=== PATIENT | male | born 1970 | race Caucasian/White ===

== ENCOUNTER 2024-11-23 15:39 | Emergency (ER) | payer OTHER, SELFPAY ==
--- NOTE | ~2024-11-23 | XR_ITS ---
EXAMINATION: XR hand LT min 3V DATE: 11/23/2024 16:14 INDICATION: Crush injury to the left second-fifth fingers TECHNIQUE: Posteroanterior, oblique and lateral views of the left hand were obtained. COMPARISON: None. FINDINGS: Old healed fracture deformity distal left radius with residual mild dorsal tilt of the distal articular surface. Mild residual distraction of a chronic nonunited ulnar solid avulsion fracture. Bone alignment is otherwise normal. No acute fractures identified. 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 IMPRESSION: 1. No acute osseous adenopathy. 2. Old healed distal left radial fracture deformity and chronic nonunited ulnar styloid avulsion fracture. 3. 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 Reviewed, dictated and finalized at location A.
--- NOTE | 2024-11-23 15:47 | ED_ITS ---
HPI - Extremity Injury (Upper) General Chief Complaint: Extremity Injury, Upper Stated Complaint: L hand pain Time Seen by Provider: 11/23/24 15:47 Source: patient Mode of arrival: ambulatory Limitations: no limitations History of Present Illness HPI narrative: Minh is a 53-year-old male patient presenting to the clinic today with complaints of left hand-2nd, 3rd, 4th, and 5th finger injuries. He reports approximately 1 hour ago he accidentally shut his fingers in a sliding van door. Has small abrasions to the 2nd and 3rd fingers. Tetanus is up-to-date. Is able to fully flex and extend the fingers with minimal pain. Related Data Home Medications ?Medication ?Instructions ?Recorded ?Confirmed ?Last Taken ?Type duloxetine 30 mg capsule,delayed mg PO 11/23/24 Unkno wn History release omeprazole 20 mg capsule,delayed mg 11/23/24 Unknown History release trazodone 50 mg tablet mg 11/23/24 Unknown History Allergies Allergy/AdvReac Type Severity Reaction Status Date / Time No Known Allergies Allergy Verified 11/23/24 16:01 Review of Systems Review of Systems: Pertinent positives per HPI. Patient denies any fever, chills, rash, headache, visual changes, dizziness, cough, runny nose, sore throat, shortness of breath, chest pain, palpitations, nausea, vomiting, diarrhea, constipation, abdominal pain, or any urinary issues. PMFSH Comments At the time of my signature, I reviewed and agree with the nursing past medical, surgical, social, and family history. There is no relevant family history pertinent to the patient complaint. Exam Narrative: General: Well-developed, well nourished, in no apparent distress Head: Normocephalic, atraumatic. Cardio: Regular rate and rhythm, s1 and s2 normal, no murmur appreciated. Resp: Clear to auscultation bilaterally, no rhonchi, rales, wheezing or rubs. Musculoskeletal: No deformity, tender to palpation over the 2nd, 3rd, 4th, and 5th left finger, abrasion noted to the top of the 2nd and 3rd distal fingers, is able to flex and extend the fingers actively, is able to give okay sign and thumbs-up, grossly normal range of motion, muscle strength strong and equal, peripheral pulse strong, no edema, no cyanosis, normal gait and station Course Course Emergency Course: Portions of this record may have been created with voice recognition software. Level of Care: Express Care Visit Vital Signs Vital signs: Vital Signs Temperature 36.8 C 11/23/24 15:50 Pulse Rate 96 11/23/24 15:50 Respiratory Rate 20 11/23/24 15:50 Blood Pressure 139/90 11/23/24 15:50 Pulse Oximetry 98 11/23/24 15:50 Oxygen Delivery Room Air 11/23/24 15:50 Temperature 36.8 C 11/23/24 15:50 Pulse Rate 96 11/23/24 15:50 Respiratory Rate 20 11/23/24 15:50 Blood Pressure 139/90 11/23/24 15:50 Pulse Oximetry 98 11/23/24 15:50 Oxygen Delivery Room Air 11/23/24 15:50 Vital signs reviewed MDM - Extremity Injury (Upper) MDM Narrative Medical decision making narrative: At the time of visit patient is resting comfortably on the exam table. Patient appears to be nontoxic. Complaints of left hand-2nd, 3rd, 4th, and 5th finger injuries. He reports approximately 1 hour ago he accidentally shut his fingers in a sliding van door. Has small abrasions to the 2nd and 3rd fingers. Tetanus is up-to-date. Is able to fully flex and extend the fingers with minimal pain. On exam patient has very minimal swelling to the 2nd 3rd 4th and 5th finger with a abrasion to the top of the 2nd 3rd finger, patient has good sensation, circulation, and motion with the fingers. No sign of compartment syndrome. X- rays of the left hand was ordered. Diagnostics: X-ray of the left hand was performed and negative for any sign of acute fracture or malalignment Plan: I suspect patient has contusions to the 2nd, 3rd, 4th, and 5th fingers with abrasions to the 2nd 3rd finger. Supportive measures were discussed with the patient and they voiced understanding discharge instructions and agrees to treatment plan. Return precautions reviewed Differential Diagnosis Differential diagnosis: Likely finger sprain, dislocation of finger and other (Finger fracture, contusion, soft tissue injury, compartment syndrome) Imaging Data Radiologist's impression: ITS Impressions Hand X-Ray 11/23/24 16:22 IMPRESSION: 1. No acute osseous adenopathy. 2. Old healed distal left radial fracture deformity and chronic nonunited ulnar styloid avulsion fracture. 3. 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 Discharge Plan Discharge Clinical Impression: Abrasion Contusion of finger of left hand Qualifiers: Encounter type: initial encounter Finger: unspecified finger Qualified Code(s): S60.00XA - Contusion of unspecified finger without damage to nail, initial encounter Patient Disposition: Home Condition: Stable Instructions: Antibiotic Form, Contusion in Adults (ED), Abrasion (ED) Additional Instructions: X-rays are negative for any sign of fracture or malalignment of the left fingers Rest, ice, and elevate Tylenol/motrin for pain as discussed. Follow up with your PCP if symptoms persist more than 1 week. Patient Language: Portuguese Prescriptions: No Action trazodone 50 mg tablet omeprazole 20 mg capsule,delayed release(DR/EC) duloxetine 30 mg capsule,delayed release(DR/EC) PO Follow-up/Referrals: UNKNOWN,DOCTOR [Non-Staff] Time of Disposition: 16:32 Quality NIHSS Nursing Documentation ED NIHSS nursing documentation: reviewed/agree
[2024-11-23 15:50] VITALS: BP 139/90; PULSE 96; RESP 20; TEMP 36.8; O2SAT 98
--- OUTSIDE RECORDS SUMMARY | 2024-11-23 16:03 | XMS_ITS | Encounter Summary ---
Author Organization [facility] Address [address] [place] [address] Phone Care Team Providers Care Resident Care Spec Name Role Phone Sarabjit Terry MD Primary Care Provider [phone] Jessee Cerna MD Unavailable Reason for Visit * Reason Comments Medication Refill Encounter Details Date Type Department Care Team (Late st Contact Info) Description 02/04/2022 Refill [facility] - [facility] [address] [place] [address] Sarabjit Terry MD [address] [address] Medication Refill Social History Tobacco Use Types Packs/Day Years Used Date Smoking Tobacco: Every Day Cigarettes 0.3 37.4 Started: 07/12/1987 Smokeless Tobacco: Current Chew Comments:1/2 can a day Alcohol Use Standard Drinks/Week Comments Yes 0 (1 standard drink = 0.6 oz pur e alcohol) 2-3 beers a day PHQ-2 Answer Date Recorded Total Score - Questions 1-9 0 06/06 Sexually Active Control Partners Comments Not Currently Female Sex and Gender Information Value Date Recorded Sex Assigned at Not on file Legal Sex Male 12:24 AM CDT Gender Identity Not on file Sexual Orientation Not on file documented as of this encounter Miscellaneous Notes * Telephone Encounter - Colette Laguerre RN - 02/05/2022 9:18 AM CDT Medication failed the protocol, provider to review and approve the medication order if appropriate. Requested Prescriptions Pending Prescriptions Disp Refills traZODone (DESYREL) 50 MG Tablet [Pharmacy Med Name: TRAZODONE 50 MG TABLET] 90 Tablet Sig: TAKE ONE TABLET BY MOUTH NIGHTLY Serotonin Modulators (6 Month Refill Only) Protocol Failed - 02/04/2022 6:44 PM Failed - Visit with relevant provider in past 6 months or upcoming 90 days Recent Visits No visits were found meeting these conditions. Showing recent visits within past 182 days and meeting all other requirements Future Appointments No visits were found meeting these conditions. Showing future appointments within next 90 days and meeting all other requirements Failed - Has an encounter in the past 6 months with a depression or anxiety visit diagnosis Passed - No PRN Use for Trazodone Passed - Patient has established therapy with Serotonin Modulators for at least 6 months DULoxetine (CYMBALTA) [address] Particles [Pharmacy Med Name: DULOXETINE HCL DR 30 MG CAP] 270 Capsule Sig: TAKE THREE CAPSULES BY MOUTH EVERY DAY IN THE MORNING SNRI (6 Month Refill Only) Protocol Failed - 02/04/2022 6:44 PM Failed - Visit with relevant provider in past 6 months or upcoming 90 days Recent Visits No visits were found meeting these conditions. Showing recent visits within past 182 days and meeting all other requirements Future Appointments No visits were found meeting these conditions. Showing future appointments within next 90 days and meeting all other requirements Failed - Has an encounter in the past 6 months with a depression or anxiety visit diagnosis Passed - Patient has established therapy with Serotonin-Norepinephrine Reuptake Inhibitors for at least 6 months documented in this encounter Plan of Treatment Upcoming Encounters Date Type Department Care Team (Late st Contact Info) Description 08/22/2025 4:15 PM CDT Office Visit [facility] - Family Medicine [facility] [address] [place] [address] Sarabjit Terry MD [address] [address] documented as of this encounter Visit Diagnoses Not on filedocumented in this encounter Additional Health Concerns Assessment Noted Time PHQ-9 Depression Total Score: 0 06/28/19 21 3:00 PM CDT documented as of this encounter Care Teams Resident Care Spec Relationship Specialty Start Date End Date Sarabjit Terry MD [address] [facility] [address] [place] [address] PCP - General Family Medicine 02/22/15 Jessee Cerna MD [address] [facility] [address] [place] [address] Consulting Physician Colon and Rectal Surgery 11/04/23 documented as of this encounter
--- OUTSIDE RECORDS SUMMARY | 2024-11-23 16:03 | XMS_ITS | Clinical Summary ---
Author Organization [facility] Address [address] [address] Phone Care Team Providers Care Bone Glue Maker Name Role Phone Sarabjit Terry MD Primary Care Provider [phone] Jessee Cerna MD Unavailable Allergies No known active allergies Medications Multiple Vitamins-Minera ls (MULTIVITAMIN ADULT EXTRA C PO) Take by mouth daily. Active omeprazole (PriLOSEC) 20 MG CAPSULE DELAYED RELEASE Take 1 Capsule by mouth daily. 90 Capsule 3 12/18/2023 Active DULoxetine (CYMBALTA) [address] Particles Take 3 Capsules by mouth daily. PT TAKES THREE 30MG TABLETS IN THE MORNING 270 Capsule 3 08/16/2024 Active traZODone (DESYREL) 50 MG Tablet Take 1 Tablet by mouth nightly. 90 Tablet 3 08/16/2024 Active Active Problems Problem Noted Date Diagnosed Date Panlobular emphysema 08/16/2024 Esophageal thickening 09/01/2023 Wellness examination (Adult) 06/30/2023 Personal history of tobacco use, presenting hazards to health 06/30/2023 Tachycardia 06/21/2019 Hematuria 05/03/2018 Tobacco abuse 04/03/2017 Abnormal thyroid ultrasound 11/21/2015 Insomnia 11/21/2015 Depression 02/28/2015 Resolved Problems Problem Noted Date Diagnosed Date Resolved Date Thyroid nodule 02/28/2015 04/03/2017 Immunizations Immunization Administration Dates Next Due TD VACCINE 04/07/2009 Family History Medical History Relation Name Comments Cancer Father Bones Hypertension Father Kidney Stones Father Other-comment Paternal Grandfather coloni c issues No Known Problems Paternal Grandmother Relation Name Status Comments Father Alive Maternal Grandfather Maternal Grandmother Mother Alive Paternal Grandfather Paternal Grandmother Social History Tobacco Use Types Packs/Day Years Used Date Smoking Tobacco: Every Day Cigarettes 0.5 40.6 Started: 1984 Smokeless Tobacco: Current Chew Tobacco Cessation:Ready to Q uit: No; Counseling Given: Yes Comments:<1/2 can a day Alcohol Use Standard Drinks/Week Comments Yes 0 (1 standard drink = 0.6 oz pur e alcohol) 4-5 beers perday [facility] Utilities Answer Date Recorded In the past 12 months has [employer], gas, oil, or water [employer] threatened to shut off services in your home? No 06/30/2023 Social Connection and Isolation Panel Answer Date Recorded In a typical week, how many times do you talk on the phone with family, friends, or neighbors? More than three times a week 06/30/2023 How often do you get togethe r with friends or relatives? Twice a week 06/30/2023 How often do you attend chur ch or church services? Never 06/30/2023 Do you belong to any clubs o r organizations such as presybeterian groups, unions, fraternal or athletic groups, or school groups? No 06/30/2023 How often do you attend meet ings of the clubs or organizations you belong to? Never 06/30/2023 Are you , , di vorced, , never , or living with a partner? 06/30/2023 AUDIT-C Answer Date Recorded Q1: How often do you have a drink containing alcohol? 4 or more times a week 06/30/2023 Q2: How many drinks containi ng alcohol do you have on a typical day when you are drinking? 3 or 4 Q3: How often do you have si x or more drinks on one occasion? Monthly 06/30/2023 Overall Financial Resource Strain (CARDIA) Answe r Date Recorded How hard is it for you to pa y for the very basics like food, housing, medical care, and heating? Not hard at all 06/30/2023 PHQ-2 Answer Date Recorded Total Score - Questions 1-9 0 08/05 [facility] - Occupational Stress Questionnaire Answer Date Recorded Do you feel stress - tense, restless, nervous, or anxious, or unable to sleep at night because your mind is troubled all the time - these days? Only a little 06/30/2023 Exercise Vital Sign Answer Date Recorde d On average, how many days pe r week do you engage in moderate to strenuous exercise (like a brisk walk)? 6 days 06/30/2023 On average, how many minutes do you engage in exercise at this level? 100 min 06/30/2023 Hunger Vital Sign Answer Date Recorded Within the past 12 months, y ou worried that your food would run out before you got the money to buy more. Never true 06/30/19 24 Within the past 12 months, t he food you bought just didn't last and you didn't have money to get more. Never true 06/30/2023 PRAPARE - Transportation Answer Date Re corded In the past 12 months, has l ack of transportation kept you from medical appointments or from getting medications? No 06/06 In the past 12 months, has l ack of transportation kept you from meetings, work, or from getting things needed for daily living? No 06/30/2023 Housing Stability Vital Sign Answer Ty e Recorded In the last 12 months, was t here a time when you were not able to pay the mortgage or rent on time? No 06/30/2023 In the last 12 months, how many places have you lived? 1 06/30/2023 In the last 12 months, was t here a time when you did not have a steady place to sleep or slept in a skilled nursing (including now)? No 06/30/2023 Sexually Active Control Partners Comments Not Currently Female Sex and Gender Information Value Date Recorded Sex Assigned at Not on file Legal Sex Male 12:24 AM CDT Gender Identity Not on file Sexual Orientation Not on file Last Filed Vital Signs Vital Sign Reading Time Taken Comments Blood Pressure 122/74 08/16/2024 4:08 PM CDT Pulse 90 08/16/2024 4:08 PM CDT Temperature 36.2 C (97.2 F) 08/16/2024 4:08 PM CDT Respiratory Rate 16 08/16/2024 4:08 PM CDT Oxygen Saturation 96% 08/16/2024 4:08 PM CDT Inhaled Oxygen Concentration - - Weight 75.4 kg (166 lb 3.2 oz) 08/16/2024 4:08 P M CDT Height 180.3 cm (5' 11) 08/16/2024 4:08 PM CDT Body Mass Index 23.18 08/16/2024 4:08 PM CDT Plan of Treatment Upcoming Encounters Date Type Department Care Team (Late st Contact Info) Description 08/22/2025 4:15 PM CDT Office Visit [facility] - Family Medicine - [place] [address] [place] [address] Sarabjit Terry MD [address] [address] Health Maintenance Due Date Last Done Comments Hepatitis C Virus (HCV) Screening 1970 TdaP Immunization 1969 Hepatitis B Immunization (1 of 3 - 19+ 3-dose series) 1988 Cologuard 2014 Immunochemical Fecal Occult Blood 2014 Zoster Immunization (1 of 2) 12/28/2019 SARS-COV-2 Immunization ( season) 2023 03/01/2022, 04/14/2021, 09/01/2020, Additional history exists Influenza Immunization (#1) 2024 Lung Cancer Screening 08/02/2025 08/02/2024, 024 Colonoscopy 08/10/2025 08/10/2020 Colorectal Cancer Screening 08/10/2025 Respiratory Syncytial Virus (RSV) Immunization (Adult) (1 - 1-dose 75+ series) 2044 Human Papillomavirus (HPV) Immunization Aged Out No longer eligible based on patient's age to complete this topic Meningococcal Immunization (ACWY) Aged Out No longer eligible based on patient's age to complete this topic Pneumococcal Immunization (50+ years) Discontinued Rotavirus Immunization Aged Out No lo nger eligible based on patient's age to complete this topic Procedures Procedure Name Priority Date/Time Associated Diagnosis Comments CT CHEST SCREENING WO Routine 08/02/2024 6:07 PM CDT Personal history of tobacco use, presenting hazards to health from Last 3 Months or Most Recently Relevant to Health Maintenance Results * CT CHEST SCREENING WO (08/02/2024 6:07 PM CDT) Anatomical Region Laterality Modality Chest N/A Computed Tomogra phy 08/12/2024 11:2 4 AM CDT Impressions 08/12/2024 11:26 AM CDT IMPRESSION: 1. Unchanged 3 mm solid nodule in the right middle lobe. No new pulmonary nodules. 2. Mild emphysema. 3. Dilated ascending thoracic aorta measuring up to 4.0 cm. Lung-RADS category 2: Benign appearance or behavior. Recommendation: Low dose Screening CT of chest in 12 months. Narrative 08/12/2024 11:26 AM CDT EXAM DESCRIPTION: CT CHEST SCREENING WO REASON FOR STUDY: Screening CT of the chest in a current smoker with a 26 pack year smoking history. Additional history: None. TECHNIQUE: Low dose CT scan of the chest was performed without intravenous contrast using helical scanning technique. The exam extends from the lung apices through the lung bases. Automatic exposure control was used as a dose optimization technique. NOTE: This study was performed for the specific purposes of lung cancer screening and is not an alternative to diagnostic chest CT. RADIATION DOSE: CT dose index volume (CTDIvol) = 3.53 mGy COMPARISON: CT chest 07/15/2023 FINDINGS: SMOKING RELATED LUNG DISEASE: Mild emphysema. LUNG NODULES: Unchanged 3 mm solid nodule in the right middle lobe on image 180. There are multiple scattered calcified pulmonary granulomas. No new pulmonary nodules appreciated. CORONARY ARTERY CALCIFICATION: None appreciated. OTHER: There is no pleural effusion or pneumothorax. The central airways are patent. There are scattered areas of subsegmental atelectasis. The heart size is normal. No pericardial effusion or thickening. Thoracic aorta is dilated measuring up to 4.0 cm. No mediastinal or axillary lymphadenopathy. Visualized upper abdomen is unremarkable. There are no suspicious osseous lesions. THIS IS AN ELECTRONICALLY VERIFIED FINAL REPORT 08/12/2024 11:24 AM - Electronically signed by Alan Boss M.D. AM: AM Report ID: [id number] Reading Location: [id number] Procedure Note Alan Boss MD - 08/12/2024 EXAM DESCRIPTION: CT CHEST SCREENING WO REASON FOR STUDY: Screening CT of the chest in a current smoker with a 26 pack year smoking history. Additional history: None. TECHNIQUE: Low dose CT scan of the chest was performed without intravenous contrast using helical scanning technique. The exam extends from the lung apices through the lung bases. Automatic exposure control was used as a dose optimization technique. NOTE: This study was performed for the specific purposes of lung cancer screening and is not an alternative to diagnostic chest CT. RADIATION DOSE: CT dose index volume (CTDIvol) = 3.53 mGy COMPARISON: CT chest 07/15/2023 FINDINGS: SMOKING RELATED LUNG DISEASE: Mild emphysema. LUNG NODULES: Unchanged 3 mm solid nodule in the right middle lobe on image 180. There are multiple scattered calcified pulmonary granulomas. No new pulmonary nodules appreciated. CORONARY ARTERY CALCIFICATION: None appreciated. OTHER: There is no pleural effusion or pneumothorax. The central airways are patent. There are scattered areas of subsegmental atelectasis. The heart size is normal. No pericardial effusion or thickening. Thoracic aorta is dilated measuring up to 4.0 cm. No mediastinal or axillary lymphadenopathy. Visualized upper abdomen is unremarkable. There are no suspicious osseous lesions. THIS IS AN ELECTRONICALLY VERIFIED FINAL REPORT 08/12/2024 11:24 AM - Electronically signed by Alan Boss M.D. AM: AM Report ID: [id number] Reading Location: [id number] IMPRESSION: 1. Unchanged 3 mm solid nodule in the right middle lobe. No new pulmonary nodules. 2. Mild emphysema. 3. Dilated ascending thoracic aorta measuring up to 4.0 cm. Lung-RADS category 2: Benign appearance or behavior. Recommendation: Low dose Screening CT of chest in 12 months. Sarabjit Vj Terry MD [facility] CT ORDERABLES Final R esult from Last 3 Months or Most Recently Relevant to Health Maintenance Insurance [employer] Care Teams Bone Glue Maker Relationship Specialty Start Date End Date Sarabjit Terry MD [address]2 [facility] [address] [place] [address] PCP - General Family Medicine 02/22/15 Jessee Cerna MD [address]2 [facility] [address] [place] [address] Consulting Physician Colon and Rectal Surgery 11/04/23
--- OUTSIDE RECORDS SUMMARY | 2024-11-23 16:03 | XMS_ITS | Encounter Summary ---
Author Organization [facility] Address [address] [place] [place] [address] Phone Care Team Providers Care Intercell Connector Placer Name Role Phone Sarabjit Terry MD Primary Care Provider [phone] Jessee Cerna MD Unavailable Reason for Visit * Reason Comments Medication Refill Encounter Details Date Type Department Care Team (Late st Contact Info) Description 10/03/2020 Refill [facility] [address] [place] [address] Sarabjit Terry MD [address] [address] Medication Refill Social History Tobacco Use Types [...] encounter Miscellaneous Notes * Telephone Encounter - Minerva Villasenor RN - 10/04/2020 8:15 AM CDT Per nursing clinical judgement, provider to review and approve the medication(s) order(s) if appropriate. Last OV 06/27/20, F/U 06/26/21, Last Rx Trazodone 07/07/19, Duloxetine 07/07/19 Minerva MARRUFO Requested Prescriptions Pending Prescriptions Disp Refills traZODone (DESYREL) 50 MG Tablet [Pharmacy Med Name: TRAZODONE 50 MG TABLET] 90 Tablet 3 Sig: TAKE ONE TABLET BY MOUTH NIGHTLY Serotonin Modulators (6 Month Refill Only) Protocol Passed - 10/03/2020 6:20 AM Passed - Visit with relevant provider in past 6 months or upcoming 90 days Recent Visits Date Type Provider Dept 06/27/20 Office Visit Sarabjit Terry MD [facility] Show[facility] recent visits within past 182 days and meeting all other requirements Future Appointments No visits were found meeting these conditions. Showing future appointments within next 90 days and meeting all other requirements Passed - Has an encounter in the past 6 months with a depression or anxiety visit diagnosis Passed - No PRN Use for Trazodone Passed - Patient has established therapy with Serotonin Modulators for at least 6 months DULoxetine (CYMBALTA) [address] Particles [Pharmacy Med Name: DULOXETINE HCL DR 30 MG CAP] 270 Capsule 3 Sig: TAKE ONE CAPSULE BY MOUTH THREE TIMES A DAY SNRI (6 Month Refill Only) Protocol Passed - 10/03/2020 6:20 AM Passed - Visit with relevant provider in past 6 months or upcoming 90 days Recent Visits Date Type Provider Dept 06/27/20 Office Visit Sarabjit Terry MD [facility] recent visits within past 182 days and meeting all other requirements Future Appointments No visits were found meeting these conditions. Showing future appointments within next 90 days and meeting all other requirements Passed - Has an encounter in the past 6 months with a depression or anxiety visit diagnosis Passed - Patient has established therapy with Serotonin-Norepinephrine Reuptake Inhibitors for at least 6 months documented in this encounter Plan of Treatment Upcoming Encounters Date Type Department Care Team (Late st Contact Info) Description 08/22/2025 4:15 PM CDT Office Visit [facility] [address] [place] [address] Sarabjit Terry MD [address] [address] documented as of this encounter Visit Diagnoses Not on filedocumented in this encounter Additional Health Concerns Assessment Noted Time PHQ-9 Depression Total Score: 0 06/28/19 21 3:00 PM CDT documented as of this encounter Care Teams Intercell Connector Placer Relationship Specialty Start Date End Date Sarabjit Terry MD [id number] [address] PCP - General Family Medicine 02/22/15 Jessee Cerna MD [address] [address] Consulting Physician Colon and Rectal Surgery 11/04/23 documented as of this encounter
--- OUTSIDE RECORDS SUMMARY | 2024-11-23 16:03 | XMS_ITS | Encounter Summary ---
Author Organization [facility] Address [address] [place] [address] Phone Care Team Providers Care Asset Protection Greeter Name Role Phone Sarabjit Terry MD Primary Care Provider [phone] Jessee Cerna MD Unavailable Reason for Visit * Reason Comments Medication Refill Encounter Details Date Type Department Care Team (Late st Contact Info) Description 05/19/2023 Refill [facility] [address] [place] [address] Sarabjit Terry MD #[address] [address] Medication Refill Social History Tobacco Use Types [...] encounter Miscellaneous Notes * Telephone Encounter - Yasmin Woodard RN - 05/20/2023 9:48 AM CST Medication failed the protocol, provider to review and approve the medication order if appropriate. Requested Prescriptions Pending Prescriptions Disp Refills traZODone (DESYREL) 50 MG Tablet [Pharmacy Med Name: TRAZODONE 50 MG TABLET] 90 Tablet 0 Sig: TAKE ONE TABLET BY MOUTH NIGHTLY Serotonin Modulators (6 Month Refill Only) Protocol Failed - 05/19/2023 6:30 PM Failed - Has an encounter in the past 6 months with a depression or anxiety visit diagnosis Passed - Visit with relevant provider in past 6 months or upcoming 90 days Recent Visits No visits were found meeting these conditions. Showing recent visits within past 182 days and meeting all other requirements Future Appointments Date Type Provider Dept 06/30/23 Appointment Sarabjit Terry MD [facility] Showing future appointments within next 90 days and meeting all other requirements Passed - No PRN Use for Trazodone Passed - Patient has established therapy with Serotonin Modulators for at least 6 months DULoxetine (CYMBALTA) [address] Particles [Pharmacy Med Name: DULOXETINE HCL DR 30 MG CAP] 270 Capsule 0 Sig: TAKE THREE CAPSULES BY MOUTH EVERY MORNING SNRI (6 Month Refill Only) Protocol Failed - 05/19/2023 6:30 PM Failed - Has an encounter in the past 6 months with a depression or anxiety visit diagnosis Passed - Visit with relevant provider in past 6 months or upcoming 90 days Recent Visits No visits were found meeting these conditions. Showing recent visits within past 182 days and meeting all other requirements Future Appointments Date Type Provider Dept 06/30/23 Appointment Sarabjit Terry MD [facility] Showing future appointments within next 90 days and meeting all other requirements Passed - Patient has established therapy with Serotonin-Norepinephrine Reuptake Inhibitors for at least 6 months OGRAPH [employer] documented in this encounter Plan of Treatment Upcoming Encounters Date Type Department Care Team (Late st Contact Info) Description 08/22/2025 4:15 PM CDT Office Visit [facility] [address] [place] [address] Sarabjit Terry MD #[address] [address] documented as of this encounter Visit Diagnoses Not on filedocumented in this encounter Additional Health Concerns Assessment Noted Time PHQ-9 Depression Total Score: 0 06/28/19 23 3:41 PM CDT documented as of this encounter Care Teams Asset Protection Greeter Relationship Specialty Start Date End Date Sarabjit Terry MD #[address] [address] PCP - General Family Medicine 02/22/15 Jessee Cerna MD #[address] [address] Consulting Physician Colon and Rectal Surgery 11/04/23 documented as of this encounter
== END 2024-11-23 16:37 | disposition home or self-care (01) ==
PROVIDERS: Emergency Provider Nurse Practitioner Family
DX: S60.411A Abrasion of left index finger, initial encounter (principal); S60.413A Abrasion of left middle finger, initial encounter; S60.022A Contusion of left index finger without damage to nail, initial encounter; S60.032A Contusion of left middle finger without damage to nail, initial encounter; S60.042A Contusion of left ring finger without damage to nail, initial encounter; S60.052A Contusion of left little finger without damage to nail, initial encounter; W23.2XXA Caught, crushed, jammed or pinched between a moving and stationary object, initial encounter; K21.9 Gastro-esophageal reflux disease without esophagitis; F32.A Depression, unspecified
CPT/HCPCS: 73130; 99203; G0463